=== PATIENT | male | born 1995 | race Caucasian/White ===

== ENCOUNTER 2024-01-11 21:11 | Emergency (ER) | payer OTHER, SELFPAY ==
[2024-01-11 22:09] VITALS: BP 114/46; PULSE 97; RESP 18; TEMP 37.7; O2SAT 98; BMI 28.7
[2024-01-11 22:31] LABS: MANUAL DIFF FLAG NO
[2024-01-11 22:33] LABS: Basophils Percent Auto 0.3 % (0-2); Hematocrit 39.1 % (42.0-52.0); Hemoglobin 13.3 g/dl (14.0-18.0); Imm Gran Abs Auto 0.04 X10*3/uL (0.00-0.03); Imm Gran Pct Auto 0.3 % (0.0-0.4); Lymphocytes Absolute Auto 0.8 X10*3/uL (1.2-4.9); Lymphocytes Percent Auto 6.3 % (20-40); Mean Corpuscular Hemoglobin 30.4 pg (27.0-33.0); Mean Corpuscular Volume 89.3 fL (80.0-98.0); Mean Platelet Volume 8.1 fL (9.4-12.4); Monocytes Percent Auto 7.7 % (2-11); Neutrophils Absolute Auto 10.7 x10*3/uL (2.0-8.3); Neutrophils Percent Auto 85.4 % (45-73); Platelet Count 312 X10*3/uL (160-400); Red Blood Count 4.38 X10*6/uL (4.60-5.80); Red Cell Distribution Width 12.4 % (11.0-16.0); White Blood Count 12.5 X10*3/uL (4.8-10.8)
[2024-01-11 22:47] LABS: COVID-19 Test Negative (Negative); IDNOW Serial# 152EDE1D
[2024-01-11 22:48] LABS: IDNOW Serial# 08D9AD1C; Influenza A Negative (Negative); Influenza B2 Negative (Negative)
[2024-01-11 22:50] LABS: Alanine Aminotransferase 21 U/L (0-40); Albumin Level 4.2 g/dL (3.5-5.0); Alkaline Phosphatase 66 U/L (39-117); Anion Gap 14 (12-20); Aspartate Amino Transferase 20 U/L (5-37); Bilirubin Total 0.5 mg/dL (0.0-1.0); Blood Urea Nitrogen 18 mg/dL (9-16); Calcium 8.8 mg/dL (8.4-10.2); Carbon Dioxide 25 mmol/L (22-29); Chloride 103 mmol/L (96-108); Creatinine Clr Calc Pharmacy 120.7; Estimated Glomerular Filt Rate > 60; Ethanol < 10 mg/dL; Glucose Random 118 mg/dL (60-115); Potassium 3.8 mmol/L (3.3-5.1); Sodium 138 mmol/L (135-145); Total Protein 7.2 g/dL (6.5-8.0)
[2024-01-12 00:22] VITALS: BP 103/59; PULSE 59; RESP 16; TEMP 37.4; O2SAT 97
== END 2024-01-12 02:28 | disposition left against medical advice (07) ==
LOC: HO.ED 01-12 02:31
PROVIDERS: Emergency Provider Emergency Medicine
DX: R50.9 Fever, unspecified (principal); R19.7 Diarrhea, unspecified; R51.9 Headache, unspecified; F10.90 Alcohol use, unspecified, uncomplicated; Y90.0 Blood alcohol level of less than 20 mg/100 ml; Z11.52 Encounter for screening for COVID-19; Z53.21 Procedure and treatment not carried out due to patient leaving prior to being seen by health care provider
CPT/HCPCS: 80053; 80307; 85025; 87502; 87635; 99281; 99283

== ENCOUNTER → 2024-05-01 15:10 | Outpatient (BNVA) | payer BC, SELFPAY | PROVIDERS: PCP Internal Medicine; Visit Provider Urology ==

== ENCOUNTER 2024-07-10 13:46 | Outpatient (AMB) | payer BC, SELFPAY ==
--- NOTE | 2024-07-10 13:51 | A.OFFVIS_ITS ---
Intake Visit Reasons: vasectomy reversal Intake Note: New patient Presents for Consultation for Vasectomy Reversal (Vasectomy was done in [place]) 2021 Any Urology Medication: None Antibiotic Allergies:None Blood Thinners: None Site Project Manager Required: No Relationship Manager: Relationship Manager Present Accompanied by: Other Relationship Allergies No Known Allergies Allergy (Verified 07/10/24 14:20) HPI Comments Details: Zeke is a pleasant male. He is a patient of Dr. Belle. He is seen for the following conditions - vasectomy reversal Accompanied by partner Had vasectomy [place] 2 years ago He is interested reversal Given time from vasectomy has 85-90% chance for success Discussed procedure Small risk of damage testicles Significantly longer recovery recovery period than after vasectomy Estimated cost [phone] dollars We will find out for him [facility] Medical History Herpes genitalis Surgical History History of vasectomy Review of Systems Const Denies chills and Denies fever(s) Card Reports no additional complaints and Denies syncope Resp Denies cough GI Denies abdominal pain and Denies heartburn Reports as per HPI and Denies change in libido Neuro Denies syncope Psych Denies change in libido Endo Denies change in libido Physical Exam Const General: cooperative, healthy appearing, comfortable and no acute distress Orientation/consciousness: patient oriented x3 HEENT Face and sinus: Yes normal facial exam Mouth: moist mucous membranes Neck Neck: Yes normal visual inspection, Yes full ROM and Yes trachea midline Chest Chest palpation & inspection: normal inspection of the chest Resp Effort & Inspection: normal respiratory effort, able to speak in complete sentences and no respiratory distress GI Inspection: Yes normal to inspection Back/Spine/Pelvis Cervical Spine: normal cervical lordosis Thoracic/Lumbar Spine: thoracic and lumbar spine normal to inspection Skin General skin exam: no rashes or lesions noted Neuro General: patient oriented x3, gait normal, tone normal and moves all extremities Extrem General: Yes normal to inspection and Yes capillary refill normal Assessment & Plan Assessment & Plan (1) Male infertility: Code(s): 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 These include but are not limited to infection, bleeding, damage to local organs and tissues, need for further interventions. Anesthetic risks regarding cardiac arrhythmia, blood clots, and potential mortality were discussed. The patient understands the typical recovery time and the outpatient nature of the procedure. After consideration of these risks the patient gives full informed consent and they wish to move ahead with the procedure. - plan for vasectomy reversal Patient Instructions: Imaging studies, laboratory and physical exam results were discussed and reviewed in detail. No major barriers to patient understanding were identified. An opportunity to ask questions regarding the treatment plan was provided. All questions were answered. The patient expressed understanding and agreement with the above treatment plan. The patient is aware they should contact our office by phone for worsening of their current condition or the appearance of new urologic symptoms. Compliance is encouraged with any medications and followup testing that is ordered. It is a privilege to participate in the urologic care of your patient. If you have any questions or concerns regarding treatment for the above conditions, or other urologic issues, please do not hesitate to contact me. The office telephone contact is [phone]. This note is constructed using voice recognition software. While every effort has been made to ensure accuracy process treater errors may have been included. Yours sincerely, Dr Avery Watson MD, [facility] - Urology Providers of Expert, Compassionate Care for the Genitourinary System Coding Level of Care Code New Pt Level 4 (34967) Diagnoses Male infertility N46.9
== END 2024-07-10 14:45 | disposition home or self-care (01) ==
PROVIDERS: PCP Internal Medicine; Visit Provider Urology
DX: N46.9 Male infertility, unspecified (principal)
CPT/HCPCS: 99204

== ENCOUNTER → 2024-07-10 13:46 | Outpatient (BNVA) | payer BC, SELFPAY | PROVIDERS: PCP Internal Medicine; Visit Provider Urology ==